=== PATIENT | male | born 1990 | race Two or more races ===

== ENCOUNTER 2019-04-04 03:41 | Emergency (ER) | payer MEDICAID ==
[2019-04-04] MEDS ORDERED: Diphtheria,Pertussis(Acell),Tetanus Vaccine 0.5 ML SDV IM ONE (04:18)
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
== END 2019-04-04 05:20 | disposition home or self-care (01) ==
LOC: FB.ED 03:41
DX: S82.141A Displaced bicondylar fracture of right tibia, initial encounter for closed fracture (principal); S83.411A Sprain of medial collateral ligament of right knee, initial encounter; S00.212A Abrasion of left eyelid and periocular area, initial encounter; S10.91XA Abrasion of unspecified part of neck, initial encounter; Z23 Encounter for immunization; Y04.2XXA Assault by strike against or bumped into by another person, initial encounter
CPT/HCPCS: 73562-RT; 90471; 90715; 99283-25

== ENCOUNTER 2020-10-16 01:52 | Emergency (ER) | payer MEDICAID ==
[2020-10-16] MEDS ORDERED: LORazepam 2 MG/ML SDV IM ONE (02:08)
--- NOTE | 2020-10-16 10:00 | ER ---
DATE SEEN: 10/16/2020 CHIEF COMPLAINT: Anxiety. HISTORY OF PRESENT ILLNESS: This is a 30-year-old male who complains of a panic attack. He states that he took a pre-workout substance, but about 2 hours ago, he experienced a feeling of anxiety, unable to settle down, difficulty breathing, and restlessness. This has happened before several years ago. He denies fever or chills. CURRENT MEDICATIONS: None. SOCIAL HISTORY: He does not abuse drugs neither does he abuse alcohol. PHYSICAL EXAMINATION: GENERAL: He is not in any cardiopulmonary distress, but vital signs are normal. ENT: Negative. MENTAL STATUS: Very anxious, restless, and unable to sit still. He exhibited signs of anxiety. His thought process is logical and speech is normal in rate, volume, and content. IMPRESSION: Anxiety attack. PLAN: I gave him lorazepam 1 mg IM, which seemed to help his symptoms and I advised him to follow up with PCP. /[id number] NURY/QIAN
== END 2020-10-16 02:43 | disposition home or self-care (01) ==
LOC: FB.ED 01:52
DX: F41.9 Anxiety disorder, unspecified (principal)
CPT/HCPCS: 96372; 99283; J2060

== ENCOUNTER 2021-01-16 09:22 | Emergency (ER) | payer MEDICAID ==
--- NOTE | 2021-01-16 09:54 | EDM.PDOC ---
ED HPI GENERAL MEDICAL PROBLEM - General Stated Complaint: CHEST PAIN Time Seen by Provider: 01/16/21 09:50 Source of Information: Reports: Patient History Limitations: Reports: No Limitations - History of Present Illness INITIAL COMMENTS - FREE TEXT/NARRATIVE: 30-year-old male who reports beginning a few months ago he noticed that day after drinking alcohol, he would have episodes of sharp and shooting pains in his left chest that lasted for 2-3 seconds and seem to come and go throughout the day following him having alcohol use to excess. He reports that he had these chest pains beginning yesterday and they continued through the day, occurring about every 2 hours. They did not seem to be brought on by anything. There was nothing that seemed to make these pains worse or better. In fact, at times he would take a deep breath when he had these pains and that did not seem to make the pain worse. He had no nausea or vomiting associated with this. No cough. No hemoptysis. He was at work today and had an episode of these pains at about 8:30 AM and that prompted him to call the clinic to try to come in for evaluation and they told him to come to the emergency department. He has no pain now. He rates his pain as a 0/10. There is no weakness or dizziness. He does feel somewhat anxious about this pain. There are no other associated signs or symptoms. There are no other modifying factors. Onset: Other (Ongoing on an intermittent basis for the past 2-3 months) Duration: Intermittent, Resolved Prior to Arrival Location: Reports: Chest Quality: Reports: Sharp Severity: Moderate Improves with: Reports: None Worsens with: Reports: None Context: Reports: Other (As above) Associated Symptoms: Reports: No Other Symptoms Treatments CHANNELER RUNNER: Reports: Other (see below) (Nothing.) Left Chest Pain Score (Numeric/FACES): 2 - Related Data Allergies Allergy/AdvReac Type Severity Reaction Status Date / Time No Known Allergies Allergy Verified 10/16/20 02:08 Home Meds: Home Meds NK [No Known Home Meds] 04/04/19 [History] Past Medical History Psychiatric History: Reports: Anxiety (He is on no medication for this.) - Past Surgical History Other Surgical History Comment: No previous surgeries. Social & Family History - Family History Cardiac: Reports: Hypertension (In his father). Denies: CAD - Tobacco Use Tobacco Use Status *Q: Current Some Day Tobacco User (He states that he is not a regular smoker. He just occasionally smokes cigarettes.) - Caffeine Use Caffeine Use: Reports: Energy Drinks, Soda - Alcohol Use Alcohol Use Frequency: Weekly (Usually on the weekends. Oftentimes heavy and unto the point of intoxication.) - Living Situation & Occupation Living situation: Reports: Single Occupation: Employed (Works as a rod welder.) ED ROS GENERAL - Review of Systems Review Of Systems: See Below Constitutional: Denies: Fever, Chills HEENT: Denies: Throat Pain, Vision Change Respiratory: Denies: Shortness of Breath, Cough Cardiovascular: Reports: Chest Pain. Denies: Lightheadedness Endocrine: Denies: Fatigue, Polydypsia GI/Abdominal: Denies: Abdominal Pain, Nausea, Vomiting : Denies: Dysuria, Hematuria Musculoskeletal: Denies: Neck Pain, Arm Pain Neurological: Denies: Dizziness, Headache Psychiatric: Reports: Anxiety Hematologic/Lymphatic: Denies: Easy Bleeding, Easy Bruising Immunologic: Reports: No Symptoms ED EXAM, GENERAL - Physical Exam Exam: See Below Exam Limited By: No Limitations General Appearance: Alert, WD/WN, Anxious, Other (Nontoxic appearing) Eye Exam: Bilateral Eye: EOMI, Normal Inspection, PERRL Ears: Normal External Exam, Hearing Grossly Normal Ear Exam: Bilateral Ear: Auricle Normal Nose: Normal Inspection, Normal Mucosa, No Blood Throat/Mouth: Normal Inspection, Normal Lips, Normal Oropharynx, Normal Voice, No Airway Compromise Head: Atraumatic, Normocephalic Neck: Normal Inspection, Supple, Non-Tender, Full Range of Motion Respiratory/Chest: No Respiratory Distress, Lungs Clear, Normal Breath Sounds, No Accessory Muscle Use, Chest Non-Tender Cardiovascular: Normal Peripheral Pulses, Regular Rate, Rhythm, No Murmur Peripheral Pulses: 2+: Radial (L), Radial (R) GI/Abdominal: Normal Bowel Sounds, Soft, Non-Tender, No Mass Back Exam: Normal Inspection Extremities: Normal Inspection, Normal Range of Motion, Non-Tender, No Pedal Edema, Normal Capillary Refill Neurological: Alert, Oriented, CN II-XII Intact, Normal Cognition, No Motor/Sensory Deficits Psychiatric: Anxious Skin Exam: Warm, Dry, Intact, Normal Color, No Rash #1 Interpretation EKG Date: 01/16/21 Time: 09:27 Rhythm: NSR Rate (Beats/Min): 55 Amity: Normal P-Wave: Present QRS: Normal ST-T: Normal QT: Normal Comparison: NA - No Prior EKG EKG Interpretation Comments: Normal EKG. Course - Vital Signs Last Recorded V/S: Last Vital Signs Temp 36.6 C 01/16/21 09:23 Pulse 59 L 01/16/21 09:23 Resp 20 01/16/21 09:23 BP 141/77 H 01/16/21 09:23 Pulse Ox 98 01/16/21 09:23 - Orders/Labs/Meds Orders: Active Orders 24 hr Category Date Time Status EKG 12 Lead [EK] Routine Ther 01/16/21 10:05 Ordered Labs: Laboratory Tests 01/16/21 01/16/21 01/16/21 Range/Units 10:15 10:15 10:15 WBC 6.4 (3.2-10.1) x10-3/uL RBC 4.70 (3.90-5.90) x10(6)uL Hgb 14.0 (12.9-17.7) g/dL Hct 41.6 (38.3-50.1) % MCV 88.5 (80.8-98.7) fL MCH 29.9 (27.0-33.3) pg MCHC 33.7 (28.7-35.3) g/dL RDW 12.9 (12.4-15.0) % Plt Count 169 (117-477) x10(3)uL MPV 10.2 (6.7-11.0) fL Neut % (Auto) 53.5 (40.3-71.8) % Lymph % (Auto) 37.8 (15.8-45.3) % [place] % (Auto) 7.0 (5.5-15.2) % Eos % (Auto) 1.0 (0.1-6.8) % Baso % (Auto) 0.7 (0.3-3.8) % Neut # (Auto) 3.4 (1.7-6.9) x10-3/uL Lymph # (Auto) 2.4 (0.5-4.5) x10-3/uL [place] # (Auto) 0.4 (0.0-1.2) x10-3/uL Eos # (Auto) 0.1 (0.0-0.6) x10-3/uL Baso # (Auto) 0.0 (0.0-0.3) x10-3/uL D-Dimer, Quantitative 0.20 (0.0-0.59) mg/LFEU Sodium 141 (135-145) mmol/L Potassium 3.9 (3.5-5.3) mmol/L Chloride 105 (100-110) mmol/L Carbon Dioxide 28 (21-32) mmol/L BUN 15 (7-18) mg/dL Creatinine 1.1 (0.70-1.30) mg/dL Est Cr Clr Drug Dosing 101.39 mL/min Estimated GFR (MDRD) > 60 (>60) BUN/Creatinine Ratio 13.6 (9-20) Glucose 108 (80-116) mg/dL Calcium 8.1 L (8.6-10.2) mg/dL Magnesium 1.7 L (1.8-2.5) mg/dL Total Bilirubin 0.4 (0.1-1.3) mg/dL AST 24 (5-25) IU/L ALT 22 (12-36) U/L Alkaline Phosphatase 79 (56-112) IU/L Troponin I (4.0-60.3) pg/mL Total Protein 7.3 (6.0-8.0) g/dL Albumin 3.5 (3.5-5.2) g/dL Globulin 3.8 g/dL Albumin/Globulin Ratio 0.9 /03/01 Range/Units 10:15 WBC (3.2-10.1) x10-3/uL RBC (3.90-5.90) x10(6)uL Hgb (12.9-17.7) g/dL Hct (38.3-50.1) % MCV (80.8-98.7) fL MCH (27.0-33.3) pg MCHC (28.7-35.3) g/dL RDW (12.4-15.0) % Plt Count (117-477) x10(3)uL MPV (6.7-11.0) fL Neut % (Auto) (40.3-71.8) % Lymph % (Auto) (15.8-45.3) % [place] % (Auto) (5.5-15.2) % Eos % (Auto) (0.1-6.8) % Baso % (Auto) (0.3-3.8) % Neut # (Auto) (1.7-6.9) x10-3/uL Lymph # (Auto) (0.5-4.5) x10-3/uL [place] # (Auto) (0.0-1.2) x10-3/uL Eos # (Auto) (0.0-0.6) x10-3/uL Baso # (Auto) (0.0-0.3) x10-3/uL D-Dimer, Quantitative (0.0-0.59) mg/LFEU Sodium (135-145) mmol/L Potassium (3.5-5.3) mmol/L Chloride (100-110) mmol/L Carbon Dioxide (21-32) mmol/L BUN (7-18) mg/dL Creatinine (0.70-1.30) mg/dL Est Cr Clr Drug Dosing mL/min Estimated GFR (MDRD) (>60) BUN/Creatinine Ratio (9-20) Glucose (80-116) mg/dL Calcium (8.6-10.2) mg/dL Magnesium (1.8-2.5) mg/dL Total Bilirubin (0.1-1.3) mg/dL AST (5-25) IU/L ALT (12-36) U/L Alkaline Phosphatase (56-112) IU/L Troponin I 6.1 (4.0-60.3) pg/mL Total Protein (6.0-8.0) g/dL Albumin (3.5-5.2) g/dL Globulin g/dL Albumin/Globulin Ratio - Radiology Interpretation Free Text/Narrative:: Portable chest x-ray shows no acute disease. - Re-Assessments/Exams Free Text/Narrative Re-Assessment/Exam: 01/16/21 11:00: Patient remains chest pain-free. He has remained hemodynamically stable while in the emergency department. All of his blood tests are reassuringly normal. Specifically, his troponin was normal and his d-dimer was normal. His EKG was normal. His chest x-ray was normal. The pain that he has been experiencing not appear to be a cardiac related pain. It seems more likely to be musculoskeletal in nature. It is possible this could be related to his alcohol excess and I did definitely recommend that he consider avoiding alcohol use in the future. He tells me that he has "gotten into treatment for this". He is stable for discharge at this point. Precautions and reasons for return to the emergency department were discussed with the patient while he was in the emergency Department a redo tilt of the patient's discharge instructions. Departure - Departure Time of Disposition: 11:08 Disposition: Home, Self-Care 01 Clinical Impression: Anxiety Chest pain Qualifiers: Chest pain type: unspecified Qualified Code(s): R07.9 - Chest pain, unspecified Instructions: Nonspecific Chest Pain, Adult, [id number], Managing Anxiety, Adult Referrals: Sae Gold MD [Primary Care Provider] - Forms: ED Return to Work/School Form Additional Instructions: All of your blood tests were reassuringly normal. Your EKG was normal. Your chest x-ray was normal. I am unsure why you are having the chest pain but it does not appear to be anything related to your heart. It does appear that you did fully have a problem with alcohol use and I do recommend that you abstain from alcohol and continue on your path for working this problem out. Follow-up with your primary doctor. Back to the emergency department for worsening or longer-lasting chest pain, trouble breathing, unrelenting vomiting, severe weakness or any other concerning signs or symptoms. Sepsis Event Note (ED) - Focused Exam Vital Signs: Vital Signs Temp Pulse Resp BP Pulse Ox 01/16/21 09:23 36.6 C 59 L 20 141/77 H 98 - My Orders Last 24 Hours: My Active Orders 01/16/21 10:05 EKG 12 Lead [EK] Routine - Assessment/Plan Last 24 Hours: My Active Orders 01/16/21 10:05 EKG 12 Lead [EK] Routine
--- NOTE | 2021-01-16 11:01 | CR ---
INDICATION: Chest pain. CHEST, ONE VIEW: Portable AP upright view of the chest 01/16/21 revealed the heart, mediastinum, and bony thorax to be unremarkable. Overlying EKG leads noted. An active infiltrate or effusion was not seen. IMPRESSION: No acute process. MTDD
== END 2021-01-16 11:24 | disposition home or self-care (01) ==
LOC: FB.ED 09:22
DX: F41.9 Anxiety disorder, unspecified (principal); Z72.0 Tobacco use
CPT/HCPCS: 36415; 71045; 80053; 83735; 84484; 85025; 85379; 93005; 99285-25